=== PATIENT | female | born 1945 | race Caucasian/White ===

== ENCOUNTER 2016-10-07 15:35 | Emergency (ER) | payer MEDICARE, BC ==
[2016-10-07] MEDS ORDERED: TRAMADOL 50 MG TAB ONE (18:10)
== END 2016-10-07 18:27 | disposition home or self-care (01) ==
LOC: ER 15:35
DX: S16.1XXA Strain of muscle, fascia and tendon at neck level, initial encounter (principal); M51.16 Intervertebral disc disorders with radiculopathy, lumbar region; M50.322 Other cervical disc degeneration at C5-C6 level; V89.2XXA Person injured in unspecified motor-vehicle accident, traffic, initial encounter
CPT/HCPCS: 72050; 72072; 72100